=== PATIENT | female | born 1985 | race Caucasian/White ===

== ENCOUNTER 2016-10-19 00:21 | Emergency (ER) | payer SELFPAY ==
[2016-10-19] MEDS ORDERED: Morphine 4 mg/ml ISec IVP STA (00:27)
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
[2016-10-19 02:04] VITALS: BMI 20.5
[2016-10-19] MEDS ORDERED: Midazolam 2 MG/2 ML VIAL IVP STA (02:05)
[2016-10-19] MEDS ORDERED: Sodium Chloride 0.9% 1,000 ML IV STA (02:05)
[2016-10-19] MEDS ORDERED: Ketamine 10 mg/ml Inj (20 ml) IV ONE (02:08)
[2016-10-19 02:20] VITALS: TEMP 97.9
[2016-10-19 02:51] VITALS: O2SAT 100
[2016-10-19 03:30] VITALS: BP 137/84; PULSE 82; RESP 18
--- NOTE | 2016-10-19 08:19 | RAD ---
PROCEDURE: Radiographs of the Right Shoulder HISTORY: rt. shoulder pain COMPARISON: No prior. FINDINGS: BONES: Normal. No fracture. JOINTS: An anterior inferior dislocation of the right humeral head is seen relative to the glenoid fossa. Acromioclavicular joint appears normal. SOFT TISSUES: Normal. OTHER FINDINGS: None. IMPRESSION: Anterior inferior dislocation of the right humeral head. No fractures identified.
--- NOTE | 2016-10-19 08:20 | RAD ---
PROCEDURE: Radiographs of the Right Shoulder HISTORY: rt. shoulder post reduction COMPARISON: Play right shoulder radiographs also performed 10/19/2016. FINDINGS: BONES: Normal. No fracture. JOINTS: Normal reduction of glenohumeral joint. SOFT TISSUES: Normal. OTHER FINDINGS: None. IMPRESSION: Normal reduction of the right humeral head at the glenohumeral joint. No interval fracture is appreciated.
== END 2016-10-19 03:29 | disposition home or self-care (01) ==
LOC: ED 00:21
DX: S43.004A Unspecified dislocation of right shoulder joint, initial encounter (principal); Y08.89XA Assault by other specified means, initial encounter; Y93.9 Activity, unspecified; Y92.9 Unspecified place or not applicable
CPT/HCPCS: 23655; 73030; 84702; 96361; 96374; 96375; 99285; J1885; J2250; J2270; J7040

== ENCOUNTER 2017-02-26 07:27 | Inpatient (IN) | payer MEDICAID, OTHER ==
[2017-02-26] MEDS: Albuterol-Ipratrop 3 mg / 0.5 (3 ml) UD IH SCH ×3 (07:30→08:00)
[2017-02-26] MEDS ORDERED: Magnesium Sulfate 2 GM in Sodium Chloride 0.9% 100 ML IVPB ONE (07:37)
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
[2017-02-26 07:51] LABS: BASO # 0.08 K/mm3 (0.0-2.0); BASO % 0.5 % (0.0-3.0); EOS # 0.9 (0.0-0.7); EOS % 6.1 % (1.5-5.0); GRAN # 3.93 (1.4-6.5); GRAN % 25.4 % (50.0-68.0); HEMATOCRIT 41.9 % (36.0-48.0); LYMPH # 9.5 (1.2-3.4); LYMPH % 61.5 % (22.0-35.0); MEAN CELL VOLUME 90.7 fl (80.0-105.0); MEAN CORPUSCULAR HEMOGLOBIN 30.1 pg (25.0-35.0); MEAN CORPUSCULAR HGB CONC 33.2 g/dl (31.0-37.0); MEAN PLATELET VOLUME 11.2 fl (7.0-11.0); MONO % 6.5 % (1.0-6.0); RED CELL DISTRIBUTION WIDTH 15.5 % (11.5-14.5); WHITE BLOOD COUNT 15.5 10^3/ul (4.5-11.0)
[2017-02-26 08:03] LABS: GFR AFRICAN-AMERICAN > 60; POTASSIUM 3.6 mmol/L (3.6-5.0); SODIUM 146 mmol/L (132-148)
[2017-02-26] MEDS ORDERED: Albuterol 0.083% Inhal Sol (2.5 mg/3 mL) UD ONE (08:03)
[2017-02-26 08:13] LABS: TROPONIN I < 0.01 ng/mL
[2017-02-26 08:33] LABS: VENOUS BLOOD GAS BASE EXCESS -1.8 mmol/L (0.0-2.0); VENOUS BLOOD PH 7.28 (7.32-7.43)
[2017-02-26] MEDS ORDERED: EPINEPHrine 1 mg/ml (1:1000) Inj SC ONE (08:33)
[2017-02-26] MEDS ORDERED: Albuterol 0.083% Inhal Sol (2.5 mg/3 mL) UD IH STA (08:34)
[2017-02-26] MEDS ORDERED: Albuterol 0.083% Inhal Sol (2.5 mg/3 mL) UD INH STA (08:39)
[2017-02-26] MEDS ORDERED: cefTRIAXone 1 gm 100 ML IVPB STA (08:39)
[2017-02-26] MEDS ORDERED: cefTRIAXone 1 gm 1 GM/100 ML BAG IVPB STA (08:41)
[2017-02-26] MEDS ORDERED: Sodium Chloride 0.9% 1,000 ML IV SCH (08:45)
[2017-02-26 08:48] VITALS: RESP 18
[2017-02-26 08:48] LABS: BLOOD UREA NITROGEN 16 mg/dL (7-21); CALCIUM 9.3 mg/dL (8.4-10.5); CARBON DIOXIDE 22 mmol/L (21-33); CHLORIDE 108 mmol/L (98-107); GLUCOSE,RANDOM 154 mg/dL (70-110)
[2017-02-26 08:59] LABS: ARTERIAL BLOOD GAS HCO3 21.5 mmol/L (21-28); ARTERIAL BLOOD GAS O2 CAPACITY 17.1 mL/dl (16-24); ARTERIAL BLOOD GAS PH 7.36 (7.35-7.45); ARTERIAL BLOOD HGB O2 SAT 96.6 % (95.0-98.0); CARBOXYHEMOGLOBIN 2.1 % (0.5-1.5); HHB 0.3 % (0-5)
--- NOTE | 2017-02-26 09:39 | RAD ---
HISTORY: Asthma; rule out pneumonia COMPARISON: No prior. FINDINGS: LUNGS: Coarsened/ increased interstitial markings with a few scattered peribronchial cuffing changes. Findings may represent sequela of reactive/ inflammatory airway disease or viral illness. PLEURA: No significant pleural effusion identified, no pneumothorax apparent. CARDIOVASCULAR: Heart size normal. OSSEOUS STRUCTURES: No significant abnormalities. VISUALIZED UPPER ABDOMEN: Normal. OTHER FINDINGS: None. IMPRESSION: Coarsened/ increased interstitial markings with a few scattered peribronchial cuffing changes. Findings may represent sequela of reactive/ inflammatory airway disease or viral illness. PLEURA:
[2017-02-26] MEDS ORDERED: Levalbuterol 0.63 MG/3 ML Inhal Soln UD IH PRN (11:08)
[2017-02-26 11:37] LABS: VENOUS BLOOD GAS BASE EXCESS -0.5 mmol/L (0.0-2.0)
[2017-02-26 12:46] LABS: PH,URINE 5.5 (4.7-8.0); URINE BILIRUBIN NEGATIVE (NEGATIVE); URINE BLOOD MODERATE (NEGATIVE); URINE GLUCOSE (UA) NEGATIVE (NEGATIVE); URINE KETONE NEGATIVE (NEGATIVE); URINE LEUKOCYTE ESTERASE NEGATIVE Leu/uL (NEGATIVE); URINE PROTEIN TRACE mg/dL (<30 mg/dL); URINE UROBILINOGEN 0.2 E.U./dL (<1 E.U./dL)
[2017-02-26 12:56] LABS: URINE APPEARANCE CLEAR (CLEAR); URINE COLOR DARK YELLOW (YELLOW)
[2017-02-26 13:10] VITALS: BMI 23.0
[2017-02-26] MEDS ORDERED: Influenza Vaccine 60 mcg/0.5 mL SYR (4YR UP) IM ONE (13:10)
[2017-02-26] MEDS ORDERED: Pneumococcal 23-Valent Vaccine IM ONE (13:10)
[2017-02-26 14:08] LABS: URINE AMORPHOUS SEDIMENT FEW; URINE BACTERIA MANY (NEG); URINE RBC 20 - 25 /hpf (0-2)
--- NOTE | 2017-02-26 14:56 | PCM.SEPTIC ---
Sepsis Progress Note - Reassessment Type Date of Evaluation: 02/26/17 Time of Evaluation: 12:41 Reassessment Type: Non-invasive reassessment - Non Invasive Reassessment Were the most recent vital sign reviewed: Yes Vital Sign (Latest): Temp Pulse Resp BP Pulse Ox 98.6 F 105 H 18 102/70 98 02/26/17 12:53 02/26/17 14:00 02/26/17 12:53 02/26/17 12:53 02/26/17 12:24 Cardiovascular: Yes: Regular Rate, Rhythm. No: JVD, Bradycardia, Tachycardia Respiratory: Yes: Normal Breath Sounds, Wheezing (minimal, end expiratory). No : Accessory Muscle Use, Crackles, Rales, Rhonchi, Stridor, Respiratory Distress Capillary Refill: Normal (Less than 2 sec) Pulses: Normal Radial Skin: Warm, Dry
[2017-02-26] MEDS: Levalbuterol 0.63 MG/3 ML Inhal Soln UD IH SCH ×2 (15:07→20:30)
--- NOTE | 2017-02-26 15:28 | CP.PCM.HP ---
<Lane Davis - Last Filed: 02/26/17 15:45> History of Present Illness - History of Present Illness History of Present Illness: Lane Davis DO PGY1 - Internal Medicine H&P CC: Shortness of breath HPI: 31 yo F with PMH of asthma presents complaining of shortness of breath. She was found at her neighbors home, having trouble breathing, and was brought to the ER by EMS, where she received steroids, breathing treatments, and was placed on BIPAP, with dramatic improvement in her symptoms. She reports that she has been progressively more short of breath for the past two weeks, with an associated cough productive of whitish sputum. She admits that she has been taking prednisone 20mg PO daily for the past 3 days, with no improvement in her symptoms. Her symptoms acutely worsened this morning when she woke up. She is also complaining of left sided chest and back pain which started after she received treatment in the ER, worse with deep inspiration. She reports that she was first diagnosed with asthma 10 years ago. She current takes proair, nebulized albuterol, and ventolin which she uses 5 times daily normally, and more than that for the past 2 weeks. She has never been intubated before. 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 She last had an asthma exacerbation requiring hospitalization 4 years ago. Her symptoms often get worse when the seasons change, which she attributes to environmental allergies. She denies any recent travel, prolonged immobilization, sick contacts, fever, chills, nausea, vomiting, diarrhea, constipation, abdominal pain, dyuria, hematuria. 12 point ROS was obtained and is negative except as in HPI PMH: Asthma PSH: Ectopic removal Soc: 15 PYH, currently smokes 1/2 PPD; 2-3 drinks weekly; denies illicits FHx: Asthma in one sister All: Doxycycline Present on Admission - Present on Admission Any Indicators Present on Admission: No Past Patient History - Past Social History Smoking Status: Current Some Days Smoker - CARDIAC Hx Cardiac Disorders: No Hx Hypertension: No - PULMONARY Hx Respiratory Disorders: Yes (SMOKES 3-4 CIG A DAY) Hx Asthma: Yes - NEUROLOGICAL Hx Neurological Disorder: No Hx Seizures: No - HEENT Hx HEENT Problems: No - RENAL Hx Chronic Kidney Disease: No - ENDOCRINE/METABOLIC Hx Endocrine Disorders: No - HEMATOLOGICAL/ONCOLOGICAL Hx Blood Disorders: No - INTEGUMENTARY Hx Dermatological Problems: No - MUSCULOSKELETAL/RHEUMATOLOGICAL Hx Musculoskeletal Disorders: No Hx Falls: No - GASTROINTESTINAL Hx Gastrointestinal Disorders: No - GENITOURINARY/GYNECOLOGICAL Hx Genitourinary Disorders: Yes (2 MISCARRIAGE) Hx Sexually Transmitted Disorders: No - PSYCHIATRIC Hx Psychophysiologic Disorder: Yes (SMOKES 3-4 CIG A DAY) Hx Substance Use: No - SURGICAL HISTORY Hx Surgeries: Yes Other/Comment: ectopic - ANESTHESIA Hx Anesthesia: Yes Meds Allergies/Adverse Reactions: Allergies Allergy/AdvReac Type Severity Reaction Status Date / Time doxycycline Allergy RASH Verified 02/26/17 12:52 Physical Exam - Constitutional Appears: Non-toxic, No Acute Distress - Head Exam Head Exam: ATRAUMATIC, NORMOCEPHALIC - Eye Exam Eye Exam: EOMI, Normal appearance. absent: Periorbital swelling, Scleral icterus - ENT Exam ENT Exam: Mucous Membranes Moist - Neck Exam Neck exam: Positive for: Normal Inspection - Respiratory Exam Respiratory Exam: Wheezes (minimal, end expiratory), NORMAL BREATHING PATTERN. absent: Accessory Muscle Use, Chest Wall Tenderness, Rales, Rhonchi, Respiratory Distress Additional comments: Patient was initially on BIPAP. Exam noted above is afterwards, off BIPAP - Cardiovascular Exam Cardiovascular Exam: Tachycardia, REGULAR RHYTHM, +S1, +S2 - GI/Abdominal Exam GI & Abdominal Exam: Normal Bowel Sounds, Soft. absent: Firm, Guarding, Rebound , Rigid, Tenderness - Extremities Exam Extremities exam: Negative for: calf tenderness, pedal edema - Neurological Exam Neurological exam: Alert, Oriented x3 - Psychiatric Exam Psychiatric exam: Normal Affect, Normal Mood - Skin Skin Exam: Dry, Intact Results - Vital Signs Recent Vital Signs: Last Vital Signs Temp 98.6 F 02/26/17 12:53 Pulse 105 H 02/26/17 14:00 Resp 18 02/26/17 12:53 BP 102/70 02/26/17 12:53 Pulse Ox 98 02/26/17 12:24 - Labs Result Diagrams: 02/26/17 07:30 02/26/17 07:30 Labs: Laboratory Results - last 24 hr 02/26/17 02/26/17 02/26/17 11:20 11:20 11:29 pO2 214 H VBG pH 7.40 VBG pCO2 39.0 L VBG HCO3 24.2 VBG Total CO2 25.4 VBG O2 Sat (Calc) 100.0 H VBG Base Excess -0.5 L VBG Potassium 3.7 Sodium 141.0 Chloride 109.0 H Glucose 144 H Lactate 1.8 FiO2 21.0 Venous Blood Potassium 3.7 Urine Color Dark yellow Urine Appearance Clear Urine pH 5.5 Ur Specific [place] >= 1.030 Urine Protein Trace H Urine Glucose (UA) Negative Urine Ketones Negative Urine Blood Moderate H Urine Nitrate Negative Urine Bilirubin Negative Urine Urobilinogen 0.2 Ur Leukocyte Esterase Negative Urine RBC 20 - 25 Urine WBC 1 - 3 Ur Epithelial Cells 3 - 4 Amorphous Sediment Few Urine Bacteria Many Urine Other Uyeast Urine Opiates Screen Negative Urine Methadone Screen Negative Ur Barbiturates Screen Negative Ur Phencyclidine Scrn Negative Ur Amphetamines Screen Negative U Benzodiazepines Scrn Negative U Oth Cocaine Metabols Negative U Cannabinoids Screen Positive H Assessment & Plan - Assessment and Plan (Free Text) Assessment: 31 yo F with PMH of asthma presents to ER by EMS complaining of SOB, most likely 2/2 asthma exacerbation Plan: 1. Dyspnea - Most likely 2/2 asthma exacerbation vs PNA - Patient received steroids, breathing treatment, and was placed on BIPAP, with dramatic improvement in her symptoms - Patient was examined off BIPAP, breathing easy, no signs of respiratory distress - ABG reviewed, improved dramatically after initial treatment; CXR reviewed - Continue solumedrol 40q12 - Continue Xopenex Q6 robinson and Q2 prn - Patient received one dose of rocephin, will order one dose of zithromax for atypical coverage; pending further sepsis workup - Ordered flu serology, pending - Ordered UDS; significant for cannabinoids - Patient also complaining of chest pain, likely 2/2 increased work of breathing ; initial trop negative, continue to trend - Motrin PRN for pain 2. SIRS 3/4 with positive lactate - Patient presented tachycardic, tachypneic, with leukocytosis, and lactate >2 - Code sepsis called in ED - Repeat lactate 1.8 - Leukocytosis more likely 2/2 recent steroid use - UA unremarkable, UCx pending - BCx ordered; pending - Vitals improved after initial stabilization 3. Positive bHCG - Patient reports recent and miscarriage 3 weeks ago (was at 12 weeks ) - Repeat bHCG in AM to confirm trend GI/DVT Ppx - Pepcid, SCDs Patient seen, discussed, and reviewed with attending <Melody Schultz - Last Filed: 02/26/17 18:23> Results - Vital Signs Recent Vital Signs: Last Vital Signs Temp 98.6 F 02/26/17 12:53 Pulse 105 H 02/26/17 14:00 Resp 18 02/26/17 12:53 BP 102/70 02/26/17 12:53 Pulse Ox 98 02/26/17 12:24 - Labs Result Diagrams: 02/26/17 07:30 02/26/17 07:30 Labs: Laboratory Results - last 24 hr 02/26/17 02/26/17 02/26/17 11:20 11:20 11:29 pO2 214 H VBG pH 7.40 VBG pCO2 39.0 L VBG HCO3 24.2 VBG Total CO2 25.4 VBG O2 Sat (Calc) 100.0 H VBG Base Excess -0.5 L VBG Potassium 3.7 Sodium 141.0 Chloride 109.0 H Glucose 144 H Lactate 1.8 FiO2 21.0 Troponin I Venous Blood Potassium 3.7 Urine Color Dark yellow Urine Appearance Clear Urine pH 5.5 Ur Specific [place] >= 1.030 Urine Protein Trace H Urine Glucose (UA) Negative Urine Ketones Negative Urine Blood Moderate H Urine Nitrate Negative Urine Bilirubin Negative Urine Urobilinogen 0.2 Ur Leukocyte Esterase Negative Urine RBC 20 - 25 Urine WBC 1 - 3 Ur Epithelial Cells 3 - 4 Amorphous Sediment Few Urine Bacteria Many Urine Other Uyeast Urine Opiates Screen Negative Urine Methadone Screen Negative Ur Barbiturates Screen Negative Ur Phencyclidine Scrn Negative Ur Amphetamines Screen Negative U Benzodiazepines Scrn Negative U Oth Cocaine Metabols Negative U Cannabinoids Screen Positive H 02/26/17 14:58 pO2 VBG pH VBG pCO2 VBG HCO3 VBG Total CO2 VBG O2 Sat (Calc) VBG Base Excess VBG Potassium Sodium Chloride Glucose Lactate FiO2 Troponin I < 0.01 Venous Blood Potassium Urine Color Urine Appearance Urine pH Ur Specific [place] Urine Protein Urine Glucose (UA) Urine Ketones Urine Blood Urine Nitrate Urine Bilirubin Urine Urobilinogen Ur Leukocyte Esterase Urine RBC Urine WBC Ur Epithelial Cells Amorphous Sediment Urine Bacteria Urine Other Urine Opiates Screen Urine Methadone Screen Ur Barbiturates Screen Ur Phencyclidine Scrn Ur Amphetamines Screen U Benzodiazepines Scrn U Oth Cocaine Metabols U Cannabinoids Screen Attending/Attestation - Attestation I have personally seen and examined this patient.: Yes I have fully participated in the care of the patient.: Yes I have reviewed all pertinent clinical information: Yes Notes (Text): 02/26/17 18:18 31 year old female with past medical history of asthma who presents with shortness of breath secondary to acute asthma exacerbation. Continue with iv steroids and xopenex. She was counselled smoking abstinence. She also has SIRS (tachycardia, leukocytosis, elevated lactate). She was given antibiotics in ER. Will follow up on cultures. Atypical chest pain likely secondary to above. Will trend cardiac enzymes. She has elevated bHCG however at the same time states she has a recent miscarriage. She denies being sexually active since her miscarriage. Will repeat bHCG level tomorrow. Melody Schultz MD Hospitalist.
[2017-02-26] MEDS: MethylPREDNISolone 40 mg Vial IVP SCH (22:16)
[2017-02-27] MEDS: Levalbuterol 0.63 MG/3 ML Inhal Soln UD IH SCH ×3 (01:50→14:04)
[2017-02-27 08:15] LABS: BASO # 0.01 K/mm3 (0.0-2.0); BASO % 0.1 % (0.0-3.0); GRAN # 9.27 (1.4-6.5); GRAN % 88.4 % (50.0-68.0); HEMATOCRIT 39.8 % (36.0-48.0); LYMPH # 1.1 (1.2-3.4); LYMPH % 10.6 % (22.0-35.0); MEAN CORPUSCULAR HEMOGLOBIN 29.3 pg (25.0-35.0); MEAN CORPUSCULAR HGB CONC 32.9 g/dl (31.0-37.0); MEAN PLATELET VOLUME 11.4 fl (7.0-11.0); MONO # 0.1 (0.1-0.6); MONO % 0.9 % (1.0-6.0); RED CELL DISTRIBUTION WIDTH 15.5 % (11.5-14.5); WHITE BLOOD COUNT 10.5 10^3/ul (4.5-11.0)
[2017-02-27 08:30] LABS: ALB/GLOB RATIO 1.2 (1.1-1.8); ALKALINE PHOSPHATASE 76 U/L (38-126); ALT/SGPT 31 U/L (7-56); AST/SGOT 31 U/L (14-36); BILIRUBIN,TOTAL 0.3 mg/dL (0.2-1.3); BLOOD UREA NITROGEN 10 mg/dL (7-21); CALCIUM 9.6 mg/dL (8.4-10.5); CARBON DIOXIDE 21 mmol/L (21-33); CHLORIDE 108 mmol/L (98-107); GFR AFRICAN-AMERICAN > 60; GLUCOSE,RANDOM 123 mg/dL (70-110); PHOSPHOROUS 3.8 mg/dL (2.5-4.5); POTASSIUM 4.3 mmol/L (3.6-5.0); SODIUM 141 mmol/L (132-148); TOTAL PROTEIN 7.6 g/dL (5.8-8.3)
[2017-02-27 08:47] LABS: TROPONIN I < 0.01 ng/mL
--- NOTE | 2017-02-27 08:47 | CARD ---
APPROVED REPORT EKG Measurement Heart [id number] <Conclusion> Sinus tachycardia with fusion complexes Otherwise normal ECG
[2017-02-27] MEDS: MethylPREDNISolone 40 mg Vial IVP SCH (09:07)
[2017-02-27 11:48] VITALS: PULSE 82
[2017-02-27 11:53] VITALS: BP 126/58; TEMP 98.9; O2SAT 99
--- NOTE | 2017-02-27 15:39 | CP.PCM.DIS ---
<Lane Davis - Last Filed: 02/27/17 15:32> Provider - Provider Date of Admission: 02/26/17 09:57 Attending physician: Melody Schultz MD Primary care physician: Kayley Profile Required Time Spent in preparation of Discharge (in minutes): 45 Diagnosis - Discharge Diagnosis (1) Asthma exacerbation Status: Acute Hospital Course - Lab Results Lab Results: Micro Results 02/26/17 11:20 Urine,Clean Catch Urine Culture - Final No Growth (<1,000 CFU/ML) Most Recent Lab Values WBC 10.5 10^3/ul (4.5-11.0) D 02/27/17 07:30 RBC 4.47 10^6/uL (3.5-6.1) 02/27/17 07:30 Hgb 13.1 g/dL (12.0-16.0) 02/27/17 07:30 Hct 39.8 % (36.0-48.0) 02/27/17 07:30 MCV 89.0 fl (80.0-105.0) 02/27/17 07:30 MCH 29.3 pg (25.0-35.0) 02/27/17 07:30 MCHC 32.9 g/dl (31.0-37.0) 02/27/17 07:30 RDW 15.5 % (11.5-14.5) H 02/27/17 07:30 Plt Count 294 10^3/uL (120.0-450.0) 02/27/17 07:30 MPV 11.4 fl (7.0-11.0) H 02/27/17 07:30 Gran % 88.4 % (50.0-68.0) H 02/27/17 07:30 Lymph % (Auto) 10.6 % (22.0-35.0) L 02/27/17 07:30 [place] % (Auto) 0.9 % (1.0-6.0) L 02/27/17 07:30 Eos % (Auto) 0.0 % (1.5-5.0) L 02/27/17 07:30 Baso % (Auto) 0.1 % (0.0-3.0) 02/27/17 07:30 Gran # 9.27 (1.4-6.5) H 02/27/17 07:30 Lymph # 1.1 (1.2-3.4) L 02/27/17 07:30 [place] # 0.1 (0.1-0.6) 02/27/17 07:30 Eos # 0.0 (0.0-0.7) 02/27/17 07:30 Baso # 0.01 K/mm3 (0.0-2.0) 02/27/17 07:30 pCO2 38 mm/Hg (35-45) 02/26/17 08:50 pO2 214 mm/Hg (30-55) H 02/26/17 11:29 HCO3 21.5 mmol/L (21-28) 02/26/17 08:50 ABG pH 7.36 (7.35-7.45) 02/26/17 08:50 ABG Total CO2 22.7 mmol.L (22-28) 02/26/17 08:50 ABG O2 Saturation 99.7 % (95-98) H 02/26/17 08:50 ABG O2 Content 17.0 ML/dl (15-23) 02/26/17 08:50 ABG Base Excess -3.6 mmol/L (-2.0-3.0) L 02/26/17 08:50 ABG Hemoglobin 12.3 g/dL (11.7-17.4) 02/26/17 08:50 ABG Carboxyhemoglobin 2.1 % (0.5-1.5) H 02/26/17 08:50 POC ABG HHb (Measured) 0.3 % (0-5) 02/26/17 08:50 ABG Methemoglobin 1.0 % (0.0-3.0) 02/26/17 08:50 ABG O2 Capacity 17.1 mL/dl (16-24) 02/26/17 08:50 VBG pH 7.40 (7.32-7.43) 02/26/17 11:29 VBG pCO2 39.0 (40-60) L 02/26/17 11:29 VBG HCO3 24.2 mmol/l (21-28) 02/26/17 11:29 VBG Total CO2 25.4 mmol.L (22-28) 02/26/17 11:29 VBG O2 Sat (Calc) 100.0 % (40-65) H 02/26/17 11:29 VBG Base Excess -0.5 mmol/L (0.0-2.0) L 02/26/17 11:29 VBG Potassium 3.7 mmol/L (3.6-5.2) 02/26/17 11:29 Hgb O2 Saturation 96.6 % (95.0-98.0) 02/26/17 08:50 Sodium 141.0 mmol/L (132-148) 02/26/17 11:29 Chloride 109.0 mmol/L (98-107) H 02/26/17 11:29 Glucose 144 mg/dl (65-105) H 02/26/17 11:29 Lactate 1.8 mmol/L (0.7-2.1) 02/26/17 11:29 FiO2 21.0 % 02/26/17 11:29 Sodium 141 mmol/L (132-148) 02/27/17 07:30 Potassium 4.3 mmol/L (3.6-5.0) 02/27/17 07:30 Chloride 108 mmol/L (98-107) H 02/27/17 07:30 Carbon Dioxide 21 mmol/L (21-33) 02/27/17 07:30 Anion Gap 16 (10-20) 02/27/17 07:30 BUN 10 mg/dL (7-21) 02/27/17 07:30 Creatinine 0.6 mg/dl (0.7-1.2) L 02/27/17 07:30 Est GFR ( Amer) > 60 02/27/17 07:30 Est GFR (Non-Af Amer) > 60 02/27/17 07:30 Random Glucose 123 mg/dL (70-110) H 02/27/17 07:30 Calcium 9.6 mg/dL (8.4-10.5) 02/27/17 07:30 Phosphorus 3.8 mg/dL (2.5-4.5) 02/27/17 07:30 Magnesium 2.0 mg/dL (1.7-2.2) 02/27/17 07:30 Total Bilirubin 0.3 mg/dL (0.2-1.3) 02/27/17 07:30 AST 31 U/L (14-36) 02/27/17 07:30 ALT 31 U/L (7-56) 02/27/17 07:30 Alkaline Phosphatase 76 U/L (38-126) 02/27/17 07:30 Lactate Dehydrogenase 523 U/L (333-699) 02/27/17 07:30 Total Creatine Kinase 94 U/L (35-230) 02/27/17 07:30 Troponin I < 0.01 ng/mL 02/27/17 07:30 Total Protein 7.6 g/dL (5.8-8.3) 02/27/17 07:30 Albumin 4.1 g/dL (3.0-4.8) 02/27/17 07:30 Globulin 3.5 gm/dL 02/27/17 07:30 Albumin/Globulin Ratio 1.2 (1.1-1.8) 02/27/17 07:30 Beta HCG, Quant 33.33 mIU/mL (0-6.15) H 02/27/17 07:30 Venous Blood Potassium 3.7 mmol/L (3.6-5.2) 02/26/17 11:29 Urine Color Dark yellow (YELLOW) 02/26/17 11:20 Urine Appearance Clear (CLEAR) 02/26/17 11:20 Urine pH 5.5 (4.7-8.0) 02/26/17 11:20 Ur Specific [place] >= 1.030 (1.005-1.035) 02/26/17 11:20 Urine Protein Trace mg/dL (<30 mg/dL) H 02/26/17 11:20 Urine Glucose (UA) Negative mg/dL (NEGATIVE) 02/26/17 11:20 Urine Ketones Negative mg/dL (NEGATIVE) 02/26/17 11:20 Urine Blood Moderate (NEGATIVE) H 02/26/17 11:20 Urine Nitrate Negative (NEGATIVE) 02/26/17 11:20 Urine Bilirubin Negative (NEGATIVE) 02/26/17 11:20 Urine Urobilinogen 0.2 E.U./dL (<1 E.U./dL) 02/26/17 11:20 Ur Leukocyte Esterase Negative Moira/uL (NEGATIVE) 02/26/17 11:20 Urine RBC 20 - 25 /hpf (0-2) 02/26/17 11:20 Urine WBC 1 - 3 /hpf (0-6) 02/26/17 11:20 Ur Epithelial Cells 3 - 4 /hpf (0-5) 02/26/17 11:20 Amorphous Sediment Few 02/26/17 11:20 Urine Bacteria Many (NEG) 02/26/17 11:20 Urine Other Uyeast 02/26/17 11:20 Urine Opiates Screen Negative (NEGATIVE) 02/26/17 11:20 Urine Methadone Screen Negative (NEGATIVE) 02/26/17 11:20 Ur Barbiturates Screen Negative (NEGATIVE) 02/26/17 11:20 Ur Phencyclidine Scrn Negative (NEGATIVE) 02/26/17 11:20 Ur Amphetamines Screen Negative (NEGATIVE) 02/26/17 11:20 U Benzodiazepines Scrn Negative (NEGATIVE) 02/26/17 11:20 U Oth Cocaine Metabols Negative (NEGATIVE) 02/26/17 11:20 U Cannabinoids Screen Positive (NEGATIVE) H 02/26/17 11:20 - Hospital Course Hospital Course: 31 yo F with PMH of asthma for 10 years presented complaining of shortness of breath. Symptoms improved after initial treatment in the ER, where she received steroids, antibiotics, epinephrine, breathing treatments, and was placed on BIPAP. She was able to be taken off BIPAP after just a few hours. At the time, she was also complaining of chest pain, but serial troponins were negative, and EKG was negative. In the ER, code sepsis was also called, but her repeat lactate was negative, her leukocytosis resolved the following day, and urine and blood cultures were negative. Following these results, her antibiotics were not continued. She was also found to have a positive bHCG, though she reported a recent and , which was confirmed when the quantitative bHCG trended down the following day. Today, she feels much better. She denies any shortness of breath, and was able to walk around the floor without experiencing dyspnea. Her chest pain has improved. She denies fevers, chills, and cough. Importance of smoking cessation and routine follow up with a PCP and/or cattle sticker was stressed. She was given new prescriptions for her medications. All questions were answered to her satisfaction, and she was discharged to home. Discharge Exam - Head Exam Head Exam: ATRAUMATIC, NORMOCEPHALIC - Eye Exam Eye Exam: EOMI, Normal appearance, PERRL - ENT Exam ENT Exam: Mucous Membranes Moist - Neck Exam Neck exam: Normal Inspection - Respiratory Exam Respiratory Exam: Clear to PA & Lateral, NORMAL BREATHING PATTERN. absent: Decreased Breath Sounds, Rales, Rhonchi, Wheezes, Respiratory Distress, Stridor - Cardiovascular Exam Cardiovascular Exam: RRR, +S1, +S2 - GI/Abdominal Exam GI & Abdominal Exam: Normal Bowel Sounds, Soft. absent: Tenderness - Extremities Exam Extremities exam: normal inspection - Neurological Exam Neurological exam: Alert, Oriented x3 - Psychiatric Exam Psychiatric exam: Normal Affect, Normal Mood - Skin Skin Exam: Dry, Intact, Normal Color Discharge Plan - Discharge Medications Prescriptions: Albuterol HFA [Ventolin HFA 90 mcg/actuation (8 g)] 2 puff IH [id number] PRN #1 inhaler PRN Reason: Wheezing Fluticasone/Salmeterol 250/50 [Advair Diskus] 1 puff IH Q12 #60 puff Methylprednisolone [Medrol Dose Pack (21 tabs)] See Taper PO DAILY #21 mg - Follow Up Plan Condition: CRITICAL Disposition: HOME/ ROUTINE Instructions: COPD (Chronic Obstructive Pulmonary Disease) (DC) Additional Instructions: 1. Fill prescriptions given, and continue to take all medications as prescribed 2. Finish medrol dose pack as prescribed, even if you feel better 3. Follow up with your PCP within one week 4. For any new or worsening concerns, contact PCP immediately, or return to ER Referrals: Kayley Saunders Req, [Primary Care Provider] - <Melody Schultz - Last Filed: 02/27/17 15:46> Provider - Provider Date of Admission: 02/26/17 09:57 Attending physician: Melody Schultz MD Primary care physician: Kayley Saunders Required Hospital Course - Lab Results Lab Results: Micro Results 02/26/17 11:20 Urine,Clean Catch Urine Culture - Final No Growth (<1,000 CFU/ML) Most Recent Lab Values WBC 10.5 10^3/ul (4.5-11.0) D 02/27/17 07:30 RBC 4.47 10^6/uL (3.5-6.1) 02/27/17 07:30 Hgb 13.1 g/dL (12.0-16.0) 02/27/17 07:30 Hct 39.8 % (36.0-48.0) 02/27/17 07:30 MCV 89.0 fl (80.0-105.0) 02/27/17 07:30 MCH 29.3 pg (25.0-35.0) 02/27/17 07:30 MCHC 32.9 g/dl (31.0-37.0) 02/27/17 07:30 RDW 15.5 % (11.5-14.5) H 02/27/17 07:30 Plt Count 294 10^3/uL (120.0-450.0) 02/27/17 07:30 MPV 11.4 fl (7.0-11.0) H 02/27/17 07:30 Gran % 88.4 % (50.0-68.0) H 02/27/17 07:30 Lymph % (Auto) 10.6 % (22.0-35.0) L 02/27/17 07:30 [place] % (Auto) 0.9 % (1.0-6.0) L 02/27/17 07:30 Eos % (Auto) 0.0 % (1.5-5.0) L 02/27/17 07:30 Baso % (Auto) 0.1 % (0.0-3.0) 02/27/17 07:30 Gran # 9.27 (1.4-6.5) H 02/27/17 07:30 Lymph # 1.1 (1.2-3.4) L 02/27/17 07:30 [place] # 0.1 (0.1-0.6) 02/27/17 07:30 Eos # 0.0 (0.0-0.7) 02/27/17 07:30 Baso # 0.01 K/mm3 (0.0-2.0) 02/27/17 07:30 pCO2 38 mm/Hg (35-45) 02/26/17 08:50 pO2 214 mm/Hg (30-55) H 02/26/17 11:29 HCO3 21.5 mmol/L (21-28) 02/26/17 08:50 ABG pH 7.36 (7.35-7.45) 02/26/17 08:50 ABG Total CO2 22.7 mmol.L (22-28) 02/26/17 08:50 ABG O2 Saturation 99.7 % (95-98) H 02/26/17 08:50 ABG O2 Content 17.0 ML/dl (15-23) 02/26/17 08:50 ABG Base Excess -3.6 mmol/L (-2.0-3.0) L 02/26/17 08:50 ABG Hemoglobin 12.3 g/dL (11.7-17.4) 02/26/17 08:50 ABG Carboxyhemoglobin 2.1 % (0.5-1.5) H 02/26/17 08:50 POC ABG HHb (Measured) 0.3 % (0-5) 02/26/17 08:50 ABG Methemoglobin 1.0 % (0.0-3.0) 02/26/17 08:50 ABG O2 Capacity 17.1 mL/dl (16-24) 02/26/17 08:50 VBG pH 7.40 (7.32-7.43) 02/26/17 11:29 VBG pCO2 39.0 (40-60) L 02/26/17 11:29 VBG HCO3 24.2 mmol/l (21-28) 02/26/17 11:29 VBG Total CO2 25.4 mmol.L (22-28) 02/26/17 11:29 VBG O2 Sat (Calc) 100.0 % (40-65) H 02/26/17 11:29 VBG Base Excess -0.5 mmol/L (0.0-2.0) L 02/26/17 11:29 VBG Potassium 3.7 mmol/L (3.6-5.2) 02/26/17 11:29 Hgb O2 Saturation 96.6 % (95.0-98.0) 02/26/17 08:50 Sodium 141.0 mmol/L (132-148) 02/26/17 11:29 Chloride 109.0 mmol/L (98-107) H 02/26/17 11:29 Glucose 144 mg/dl (65-105) H 02/26/17 11:29 Lactate 1.8 mmol/L (0.7-2.1) 02/26/17 11:29 FiO2 21.0 % 02/26/17 11:29 Sodium 141 mmol/L (132-148) 02/27/17 07:30 Potassium 4.3 mmol/L (3.6-5.0) 02/27/17 07:30 Chloride 108 mmol/L (98-107) H 02/27/17 07:30 Carbon Dioxide 21 mmol/L (21-33) 02/27/17 07:30 Anion Gap 16 (10-20) 02/27/17 07:30 BUN 10 mg/dL (7-21) 02/27/17 07:30 Creatinine 0.6 mg/dl (0.7-1.2) L 02/27/17 07:30 Est GFR ( Amer) > 60 02/27/17 07:30 Est GFR (Non-Af Amer) > 60 02/27/17 07:30 Random Glucose 123 mg/dL (70-110) H 02/27/17 07:30 Calcium 9.6 mg/dL (8.4-10.5) 02/27/17 07:30 Phosphorus 3.8 mg/dL (2.5-4.5) 02/27/17 07:30 Magnesium 2.0 mg/dL (1.7-2.2) 02/27/17 07:30 Total Bilirubin 0.3 mg/dL (0.2-1.3) 02/27/17 07:30 AST 31 U/L (14-36) 02/27/17 07:30 ALT 31 U/L (7-56) 02/27/17 07:30 Alkaline Phosphatase 76 U/L (38-126) 02/27/17 07:30 Lactate Dehydrogenase 523 U/L (333-699) 02/27/17 07:30 Total Creatine Kinase 94 U/L (35-230) 02/27/17 07:30 Troponin I < 0.01 ng/mL 02/27/17 07:30 Total Protein 7.6 g/dL (5.8-8.3) 02/27/17 07:30 Albumin 4.1 g/dL (3.0-4.8) 02/27/17 07:30 Globulin 3.5 gm/dL 02/27/17 07:30 Albumin/Globulin Ratio 1.2 (1.1-1.8) 02/27/17 07:30 Beta HCG, Quant 33.33 mIU/mL (0-6.15) H 02/27/17 07:30 Venous Blood Potassium 3.7 mmol/L (3.6-5.2) 02/26/17 11:29 Urine Color Dark yellow (YELLOW) 02/26/17 11:20 Urine Appearance Clear (CLEAR) 02/26/17 11:20 Urine pH 5.5 (4.7-8.0) 02/26/17 11:20 Ur Specific Daisy >= 1.030 (1.005-1.035) 02/26/17 11:20 Urine Protein Trace mg/dL (<30 mg/dL) H 02/26/17 11:20 Urine Glucose (UA) Negative mg/dL (NEGATIVE) 02/26/17 11:20 Urine Ketones Negative mg/dL (NEGATIVE) 02/26/17 11:20 Urine Blood Moderate (NEGATIVE) H 02/26/17 11:20 Urine Nitrate Negative (NEGATIVE) 02/26/17 11:20 Urine Bilirubin Negative (NEGATIVE) 02/26/17 11:20 Urine Urobilinogen 0.2 E.U./dL (<1 E.U./dL) 02/26/17 11:20 Ur Leukocyte Esterase Negative Moira/uL (NEGATIVE) 02/26/17 11:20 Urine RBC 20 - 25 /hpf (0-2) 02/26/17 11:20 Urine WBC 1 - 3 /hpf (0-6) 02/26/17 11:20 Ur Epithelial Cells 3 - 4 /hpf (0-5) 02/26/17 11:20 Amorphous Sediment Few 02/26/17 11:20 Urine Bacteria Many (NEG) 02/26/17 11:20 Urine Other Uyeast 02/26/17 11:20 Urine Opiates Screen Negative (NEGATIVE) 02/26/17 11:20 Urine Methadone Screen Negative (NEGATIVE) 02/26/17 11:20 Ur Barbiturates Screen Negative (NEGATIVE) 02/26/17 11:20 Ur Phencyclidine Scrn Negative (NEGATIVE) 02/26/17 11:20 Ur Amphetamines Screen Negative (NEGATIVE) 02/26/17 11:20 U Benzodiazepines Scrn Negative (NEGATIVE) 02/26/17 11:20 U Oth Cocaine Metabols Negative (NEGATIVE) 02/26/17 11:20 U Cannabinoids Screen Positive (NEGATIVE) H 02/26/17 11:20 Attending/Attestation - Attestation I have personally seen and examined this patient.: Yes I have fully participated in the care of the patient.: Yes I have reviewed all pertinent clinical information, including history, physical exam and plan: Yes Notes (Text): 02/27/17 15:44 31 year old female with past medical history of asthma who presented with shortness of breath secondary to acute asthma exacerbation. Her symptoms improved with iv steroids and xopenex. She is ambulating without shortness of breath. She initially had chest pain which also improved. Serial cardiac enzymes were negative. She was counselled on smoking cessation. Patient is discharged home to follow up with her pmd. Counselled on smoking cessation. Melody Schultz MD Hospitalist.
[2017-02-27] MEDS ORDERED: MethylPREDNISolone 40 mg Vial IVP SCH (22:00)
== END 2017-02-27 16:40 | disposition home or self-care (01) | DRG 203 ==
LOC: ED 07:27 → ERH 09:57 → 3RNO 12:30
PROVIDERS: ADMIT Internal Medicine; ATTEND Internal Medicine
DX: J45.901 Unspecified asthma with (acute) exacerbation (principal); F17.210 Nicotine dependence, cigarettes, uncomplicated

== ENCOUNTER 2017-04-02 05:25 | Emergency (ER) | payer MEDICAID ==
[2017-04-02 05:28] VITALS: BMI 20.5
[2017-04-02 05:34] VITALS: TEMP 98.4
[2017-04-02] MEDS ORDERED: Albuterol-Ipratrop 3 mg / 0.5 (3 ml) UD IH STA ×2 (05:40→06:34)
--- NOTE | 2017-04-02 05:42 | ED PDOC ---
Arrival/HPI - General Chief Complaint: Shortness Of Breath Time Seen by Provider: 04/02/17 05:37 Historian: Patient - History of Present Illness Narrative History of Present Illness (Text): 04/02/17 05:40 Glenys Richardson is a 31 year old female, whose past medical history includes asthma, who presents to the Emergency department complaining of shortness of breath tonight. Patient reports associated chest tightness and notes symptoms are consistent with previous episodes of asthma. Patient denies any relief after using her inhalers at home. Patient denies any fever, chills, nausea, vomiting, neck pain, headache, dizziness, or any other complaints. Time/Duration: Other (yesterday) Symptom Onset: Gradual Symptom Course: Unchanged Activities at Onset: Light Context: Home Past Medical History - Provider Review Nursing Documentation Reviewed: Yes - Cardiac Hx Cardiac Disorders: No Hx Hypertension: No - Pulmonary Hx Respiratory Disorders: Yes (SMOKES 3-4 CIG A DAY) Hx Asthma: Yes - Neurological Hx Neurological Disorder: No Hx Seizures: No - HEENT Hx HEENT Disorder: No - Renal Hx Renal Disorder: No - Endocrine/Metabolic Hx Endocrine Disorders: No - Hematological/Oncological Hx Blood Disorders: No - Integumentary Hx Dermatological Disorder: No - Musculoskeletal/Rheumatological Hx Musculoskeletal Disorders: No Hx Falls: No - Gastrointestinal Hx Gastrointestinal Disorders: No - Genitourinary/Gynecological Hx Genitourinary Disorders: Yes (2 MISCARRIAGE) Hx Sexually Transmitted Diseases: No - Psychiatric Hx Psychophysiologic Disorder: Yes (SMOKES 3-4 CIG A DAY) Hx Substance Use: No - Surgical History Other/Comment: ectopic - Anesthesia Hx Anesthesia: Yes Family/Social History - Physician Review Nursing Documentation Reviewed: Yes Family/Social History: Unknown Family HX Smoking Status: Current Some Days Smoker Hx Alcohol Use: Yes (ETOH SOCIALLY) Hx Substance Use: No Allergies/Home Meds Allergies/Adverse Reactions: Allergies doxycycline Allergy (Verified 04/02/17 05:28) RASH NAUSEA Home Medications: Home Meds Medication Instructions Recorded Confirmed Albuterol Sulfate [Proair Hfa] 0.09 mg IH PRN PRN 01/20/15 04/02/17 Montelukast [Singulair] 10 mg PO DAILY 04/02/17 04/02/17 Review of Systems - Physician Review All systems were reviewed & negative as marked: Yes - Review of Systems Constitutional: Normal. absent: Fevers Eyes: Normal ENT: Normal Respiratory: SOB. absent: Cough Cardiovascular: Chest Pain Gastrointestinal: Normal. absent: Abdominal Pain, Diarrhea, Nausea, Vomiting Genitourinary Female: Normal. absent: Dysuria, Frequency, Urine Output Changes , Other Musculoskeletal: Normal. absent: Back Pain, Neck Pain Skin: Normal. absent: Rash Neurological: Normal. absent: Headache, Dizziness Endocrine: Normal Hemo/Lymphatic: Normal Psychiatric: Normal Physical Exam Vital Signs Reviewed: Yes Vital Signs Temp Pulse Resp BP Pulse Ox 04/02/17 06:15 84 20 103/50 L 100 04/02/17 05:35 16 97 04/02/17 05:33 98.4 F 97 H 18 115/73 100 Temperature: Afebrile Blood Pressure: Normal Pulse: Regular Respiratory Rate: Normal Appearance: Positive for: Well-Appearing, Non-Toxic, Comfortable Pain Distress: None Mental Status: Positive for: Alert and Oriented X 3 - Systems Exam Head: Present: Atraumatic, Normocephalic Pupils: Present: PERRL Extroacular Muscles: Present: EOMI Conjunctiva: Present: Normal Mouth: Present: Moist Mucous Membranes Neck: Present: Normal Range of Motion Respiratory/Chest: Present: Wheezes (End-expiratory wheeze, prolonged expiratory phase). No: Respiratory Distress, Accessory Muscle Use Cardiovascular: Present: Regular Rate and Rhythm, Normal S1, S2. No: Murmurs Abdomen: Present: Normal Bowel Sounds. No: Tenderness, Distention, Peritoneal Signs Back: Present: Normal Inspection Upper Extremity: Present: Normal Inspection. No: Cyanosis, Edema Lower Extremity: Present: Normal Inspection. No: Edema Neurological: Present: GCS=15, CN II-XII Intact, Speech Normal Skin: Present: Warm, Dry, Normal Color. No: Rashes Psychiatric: Present: Alert, Oriented x 3, Normal Insight, Normal Concentration Medical Decision Making ED Course and Treatment: 04/02/17 05:40 Impression: 31 year old female presents for shortness of breath and chest tightness. Plan: -- CXR -- Duoneb -- Solu-medrol -- Reassess and disposition Prior Visits: Notes and results from previous visits were reviewed. On 02/26/2017, pt was seen in the Emergency department for shortness of breath and non-productive cough. Pt was admitted to the hospital for further evaluation. Progress Notes: Reviewed EKG, NSR at [address]-segment elevations or depressions, no T-wave inversions, normal intervals. 04/02/17 06:57 Chest X-ray reviewed, shows no acute processes. - RAD Interpretation Radiology Orders: 04/02/17 06:55 CHEST PORTABLE [RAD] Stat Account Retention Representative: ED Physician - EKG Interpretation Interpreted by ED Physician: Yes Type: 12 lead EKG - Medication Orders Current Medication Orders: Discontinued Medications Albuterol/Ipratropium (Duoneb 3 Mg/0.5 Mg (3 Ml) Ud) 3 ml IH ONCE STA Stop: 04/02/17 05:41 Last Admin: 04/02/17 05:45 Dose: 3 ml Albuterol/Ipratropium (Duoneb 3 Mg/0.5 Mg (3 Ml) Ud) 3 ml IH ONCE STA Stop: 04/02/17 06:35 Last Admin: 04/02/17 06:35 Dose: 3 ml Methylprednisolone (Solu-Medrol) 125 mg IVP ONCE ONE Stop: 04/02/17 05:41 Last Admin: 04/02/17 05:51 Dose: 125 mg IVP Administration Document 04/02/17 05:51 YP (Rec: 04/02/17 05:51 YP [id number]) Charges for Administration # of IVP Administrations 1 - Scribe Statement The provider has reviewed the documentation as recorded by the Rajan Beaver Provider Scribe Attestation: All medical record entries made by the Scribe were at my direction and personally dictated by me. I have reviewed the chart and agree that the record accurately reflects my personal performance of the history, physical exam, medical decision making, and the department course for this patient. I have also personally directed, reviewed, and agree with the discharge instructions and disposition. Disposition/Present on Arrival - Present on Arrival Any Indicators Present on Arrival: No History of DVT/PE: No History of Uncontrolled Diabetes: No Urinary Catheter: No History of Decub. Ulcer: No History Surgical Site Infection Following: None - Disposition Have Diagnosis and Disposition been Completed?: Yes Diagnosis: Asthma exacerbation, Bronchitis Disposition: HOME/ ROUTINE Disposition Time: 06:59 Patient Plan: Discharge Condition: GOOD Discharge Instructions (ExitCare): Asthma (ED), Acute Bronchitis (ED) Additional Instructions: Take meds as prescribed/follow up with your doctor this week Prescriptions: predniSONE [Prednisone] 40 mg PO DAILY #10 tab Albuterol HFA [Ventolin HFA 90 mcg/actuation (8 g)] 2 puff IH [id number] PRN #1 puff PRN Reason: Wheezing Azithromycin [Zithromax] 250 mg PO DAILY #6 tab Referrals: Javed Jiang MD [Primary Care Provider] - Follow up with primary Forms: [employer] (P[employer])
[2017-04-02 07:01] VITALS: BP 121/74; PULSE 88; RESP 16; O2SAT 99
--- NOTE | 2017-04-02 08:51 | RAD ---
HISTORY: sob COMPARISON: 02/26/2017 FINDINGS: LUNGS: No active pulmonary disease. PLEURA: No significant pleural effusion identified, no pneumothorax apparent. CARDIOVASCULAR: Normal. OSSEOUS STRUCTURES: No significant abnormalities. VISUALIZED UPPER ABDOMEN: Normal. OTHER FINDINGS: None. IMPRESSION: No active disease.
--- NOTE | 2017-04-02 15:38 | CARD ---
APPROVED REPORT EKG Measurement Heart [id number] <Conclusion> Normal sinus rhythm Normal ECG
== END 2017-04-02 07:12 | disposition home or self-care (01) ==
LOC: ED 05:25
DX: J45.901 Unspecified asthma with (acute) exacerbation (principal); F17.210 Nicotine dependence, cigarettes, uncomplicated
CPT/HCPCS: 71045; 93005; 96374; 99285; J2930

== ENCOUNTER 2017-09-18 00:41 | Emergency (ER) | payer MEDICAID, OTHER ==
[2017-09-18 00:41] VITALS: BMI 20.5
[2017-09-18] MEDS ORDERED: Albuterol-Ipratrop 3 mg / 0.5 (3 ml) UD ONE (00:59)
[2017-09-18] MEDS ORDERED: Albuterol-Ipratrop 3 mg / 0.5 (3 ml) UD IH STA ×3 (01:00→02:42)
--- NOTE | 2017-09-18 01:25 | ED PDOC ---
Arrival/HPI - General Chief Complaint: Respiratory Distress Time Seen by Provider: 09/18/17 01:13 Historian: Patient - History of Present Illness Narrative History of Present Illness (Text): 09/18/17 01:22 31 year old female, with past medical history of asthma, presents to the Emergency department complaining of wheezing associated with shortness of breath since this evening. Patient states using her nebulizer/inhaler with mild improvement to symptoms. Patient states symptoms are similar to previous episodes of asthma exacerbation and requests medical attention. Patient denies any productive cough, chest pain, fever, chills, nausea, vomiting, diarrhea, abdominal pain or any other complaints. Time/Duration: 1-3 hours Symptom Onset: Gradual Symptom Course: Unchanged Activities at Onset: Light Context: Home Past Medical History - Provider Review Nursing Documentation Reviewed: Yes - Infectious Disease Hx of Infectious Diseases: None - Cardiac Hx Cardiac Disorders: No Hx Hypertension: No - Pulmonary Hx Respiratory Disorders: Yes (SMOKES 3-4 CIG A DAY) Hx Asthma: Yes - Neurological Hx Neurological Disorder: No Hx Seizures: No - HEENT Hx HEENT Disorder: No - Renal Hx Renal Disorder: No - Endocrine/Metabolic Hx Endocrine Disorders: No - Hematological/Oncological Hx Blood Disorders: No - Integumentary Hx Dermatological Disorder: No - Musculoskeletal/Rheumatological Hx Musculoskeletal Disorders: No Hx Falls: No - Gastrointestinal Hx Gastrointestinal Disorders: No - Genitourinary/Gynecological Hx Genitourinary Disorders: Yes (2 MISCARRIAGE) Hx Sexually Transmitted Diseases: No - Psychiatric Hx Psychophysiologic Disorder: Yes (SMOKES 3-4 CIG A DAY) Hx Substance Use: No - Surgical History Other/Comment: ectopic - Anesthesia Hx Anesthesia: Yes Family/Social History - Physician Review Nursing Documentation Reviewed: Yes Family/Social History: No Known Family HX Smoking Status: Current Some Days Smoker Hx Alcohol Use: Yes (ETOH SOCIALLY) Hx Substance Use: No Allergies/Home Meds Allergies/Adverse Reactions: Allergies doxycycline Allergy (Verified 04/02/17 05:28) RASH NAUSEA Home Medications: Home Meds Medication Instructions Recorded Confirmed Montelukast [Singulair] 10 mg PO DAILY 04/02/17 09/18/17 Review of Systems - Physician Review All systems were reviewed & negative as marked: Yes - Review of Systems Constitutional: Normal. absent: Fevers Eyes: Normal ENT: Normal Respiratory: SOB, Wheezing Cardiovascular: Normal. absent: Chest Pain Gastrointestinal: Normal. absent: Abdominal Pain, Diarrhea, Nausea, Vomiting Genitourinary Female: Normal Musculoskeletal: Normal Skin: Normal Neurological: Normal Endocrine: Normal Hemo/Lymphatic: Normal Psychiatric: Normal Physical Exam Vital Signs Reviewed: Yes Vital Signs Temp Pulse Resp BP Pulse Ox 09/18/17 03:54 97.7 F 85 18 111/68 96 09/18/17 02:42 83 16 112/71 97 09/18/17 00:59 97.8 F 84 20 135/97 H 95 Temperature: Afebrile Blood Pressure: Hypertensive Pulse: Regular Respiratory Rate: Normal Appearance: Positive for: Well-Appearing, Non-Toxic, Comfortable Pain Distress: None Mental Status: Positive for: Alert and Oriented X 3 - Systems Exam Head: Present: Atraumatic, Normocephalic Pupils: Present: PERRL Extroacular Muscles: Present: EOMI Conjunctiva: Present: Normal Mouth: Present: Moist Mucous Membranes Neck: Present: Normal Range of Motion Respiratory/Chest: Present: Good Air Exchange, Wheezes (end expiratory wheeze bilaterally). No: Respiratory Distress, Accessory Muscle Use Cardiovascular: Present: Regular Rate and Rhythm, Normal S1, S2. No: Murmurs Abdomen: No: Tenderness, Distention, Peritoneal Signs Back: Present: Normal Inspection Upper Extremity: Present: Normal Inspection. No: Cyanosis, Edema Lower Extremity: Present: Normal Inspection. No: Edema Neurological: Present: GCS=15, CN II-XII Intact, Speech Normal Skin: Present: Warm, Dry, Normal Color. No: Rashes Psychiatric: Present: Alert, Oriented x 3, Normal Insight, Normal Concentration Medical Decision Making ED Course and Treatment: 09/18/17 01:01 Impression: 31 year old female presents to the Emergency department for wheezing and shortness of breath. Differential Diagnosis included but are not limited to: asthma exacerbation Plan: -- Albuterol -- Solumedrol -- Reassess and disposition Prior Visits: Notes and results from previous visits were reviewed. Progress Notes: - Medication Orders Current Medication Orders: Discontinued Medications Albuterol/Ipratropium (Duoneb 3 Mg/0.5 Mg (3 Ml) Ud) 3 ml IH ONCE STA Stop: 09/18/17 01:01 Last Admin: 09/18/17 01:01 Dose: 3 ml Albuterol/Ipratropium (Duoneb 3 Mg/0.5 Mg (3 Ml) Ud) 3 ml IH ONCE STA Stop: 09/18/17 01:19 Last Admin: 09/18/17 01:20 Dose: 3 ml Albuterol/Ipratropium (Duoneb 3 Mg/0.5 Mg (3 Ml) Ud) 3 ml IH ONCE STA Stop: 09/18/17 02:43 Methylprednisolone (Solu-Medrol) 125 mg IVP ONCE ONE Stop: 09/18/17 01:18 Last Admin: 09/18/17 01:25 Dose: 125 mg IVP Administration Document 09/18/17 01:25 RG (Rec: 09/18/17 02:10 RG [facility] [id number]) Charges for Administration # of IVP Administrations 1 - Scribe Statement The provider has reviewed the documentation as recorded by the Scribe Kvng Shields. All medical record entries made by the Scribe were at my direction and personally dictated by me. I have reviewed the chart and agree that the record accurately reflects my personal performance of the history, physical exam, medical decision making, and the department course for this patient. I have also personally directed, reviewed, and agree with the discharge instructions and disposition. Disposition/Present on Arrival - Present on Arrival Any Indicators Present on Arrival: No History of DVT/PE: No History of Uncontrolled Diabetes: No Urinary Catheter: No History of Decub. Ulcer: No History Surgical Site Infection Following: None - Disposition Have Diagnosis and Disposition been Completed?: Yes Diagnosis: Asthma exacerbation Disposition: HOME/ ROUTINE Disposition Time: 04:22 Patient Plan: Discharge Condition: GOOD Discharge Instructions (ExitCare): Asthma, Adult (DC) Additional Instructions: Medication as prescribed/follow up with your doctor this week Prescriptions: Albuterol 0.083% [Albuterol 0.083% Inhal Janny (2.5 mg/3 ml) UD] 3 ml IH Q4 PRN # 1 pkg PRN Reason: Wheezing predniSONE [Prednisone] 40 mg PO DAILY #10 tab Albuterol HFA [Ventolin HFA 90 mcg/actuation (8 g)] 2 puff IH [id number] PRN #1 puff PRN Reason: Wheezing Forms: [employer] (Khmer)
[2017-09-18 04:00] VITALS: BP 111/68; PULSE 85; RESP 18; TEMP 97.7; O2SAT 96
== END 2017-09-18 04:23 | disposition home or self-care (01) ==
LOC: ED 00:41
DX: J45.901 Unspecified asthma with (acute) exacerbation (principal); F17.210 Nicotine dependence, cigarettes, uncomplicated
CPT/HCPCS: 94640; 96374; 99283; J2930